=== PATIENT | female | born 2000 | race Caucasian/White ===

== ENCOUNTER 2019-11-26 19:35 | Emergency (ER) | payer BC ==
[2019-11-26] MEDS ORDERED: SODIUM CHLORIDE 0.9% 1,000 ML IV STA (19:45)
[2019-11-26] MEDS ORDERED: ONDANSETRON 4 MG/2 ML VIAL IVP STA (19:45)
[2019-11-26] MEDS ORDERED: KETOROLAC 15 MG/ML 1 ML VIAL IVP STA (20:01)
[2019-11-26 20:34] LABS: Basophils % (A) 0 %; Eosinophils # (A) 0.1 k/uL (0-0.7); Eosinophils % (A) 1 %; HCT 43.2 % (34.0-46.0); HGB 14.4 gm/dL (11.4-16.0); Lymphocytes # (A) 2.4 k/uL (1.0-4.8); Lymphocytes % (A) 23 %; MCH 29.8 pg (25.0-35.0); MCHC 33.4 g/dL (31.0-37.0); MCV 89.3 fL (80.0-100.0); Mean Platelet Volume 9.5; Monocytes # (A) 0.6 k/uL (0-1.0); Monocytes % (A) 5 %; Neutrophils # (A) 7.1 k/uL (1.3-7.7); Neutrophils % (A) 69 %; Platelet Count 230 k/uL (150-450); RBC 4.83 m/uL (3.80-5.40); RDW 12.5 % (11.5-15.5); WBC 10.2 k/uL (4.0-11.0)
[2019-11-26 20:45] LABS: ALT 15 U/L (4-34); AST 20 U/L (14-36); African American GFR (CKD) >90 (>60 ml/min/1.73 sqM); Albumin 4.3 g/dL (3.5-5.0); Alkaline Phosphatase 77 U/L (38-126); Anion Gap 9 mmol/L; Blood Urea Nitrogen 12 mg/dL (7-17); Calcium 9.7 mg/dL (8.4-10.2); Carbon Dioxide 24 mmol/L (22-30); Chloride 105 mmol/L (98-107); Glucose 83 mg/dL (74-99); Non-African American GFR(CKD) >90 (>60 ml/min/1.73 sqM); Potassium 4.2 mmol/L (3.5-5.1); Sodium 138 mmol/L (137-145); Total Bilirubin 0.9 mg/dL (0.2-1.3); Total Protein 7.1 g/dL (6.3-8.2)
[2019-11-26 20:49] LABS: INR 0.9 (<1.2); Prothrombin Time 9.9 sec (9.0-12.0)
[2019-11-26 20:59] LABS: Partial Thromboplastin Time 21.6 sec (22.0-30.0)
[2019-11-26 21:38] VITALS: RESP 18
--- NOTE | 2019-11-26 21:43 | CT ---
EXAMINATION TYPE: CT abdomen pelvis w con DATE OF EXAM: 11/26/2019 COMPARISON: None HISTORY: RLQ pain CT DLP: 1824.9 mGycm Automated exposure control for dose reduction was used. CONTRAST: Performed with IV Contrast, patient injected with 100 mL of Isovue 300. Images were obtained from the diaphragm to the floor the pelvis with IV contrast. Lung bases are clear. There is no pleural effusion. Heart size is normal. There is no pericardial eff usion. Liver spleen stomach pancreas gallbladder appear normal. Bile ducts are not dilated. There is no adrenal mass. Kidneys show satisfactory contrast opacification. There is no hydronephrosi s. Ureters are not dilated. There is no retroperitoneal adenopathy. Bladder distends smoothly. There is no inguinal hernia. There is tiny amount of free fluid in the pelvis which could BE physiologic.. There is no evidence of pelvic mass. Uterus is anteverted. Lumbar spine is intact. Bony pelvis is int act. Hip joints are intact. Appendix appears normal. There is no mesenteric edema. There is no ascites or free air. There is no e vidence of bowel obstruction. Fecal pattern is normal. IMPRESSION: Negative CT scan abdomen and pelvis. Normal appendix.
--- NOTE | 2019-11-26 21:48 | US ---
EXAMINATION TYPE: US transvaginal DATE OF EXAM: 11/26/2019 COMPARISON: Same day CT CLINICAL HISTORY: abd pain. RLQ pain TECHNIQUE: Transvaginal (TV). Transvaginal sonographic images of the pelvis were acquired. Date of LMP: 11/12/2019 EXAM MEASUREMENTS: Uterus: 7.4 x 2.9 x 3.6 cm Endometrial Stripe: 0.6 cm Right Ovary: 3.1 x 1.9 x 3.5 cm Left Ovary: 2.3 x 2.2 x 2.0 cm 1. Uterus: Anteverted wnl 2. Endometrium: wnl 3. Right Ovary: wnl 4. Left Ovary: wnl Spectral, color and waveform doppler imaging shows good arterial and venous flow within the ovaries ; there is no evidence for ovarian torsion. 5. Bilateral Adnexa: wnl 6. Posterior cul-de-sac: Small amount of free fluid IMPRESSION: No adnexal mass. Normal uterus and endometrium. Small amount of free fluid in the pelvis could be physiologic. No evidence of ovarian torsion.
[2019-11-26 22:39] LABS: Appearance,Urine Cloudy (Clear); Bacteria,Urine Rare /hpf; Bilirubin,Urine Negative (Negative); Blood,Urine Negative (Negative); Color,Urine Light Yellow; Glucose,Urine (UA) Negative (Negative); Ketones,Urine Negative (Negative); Leukocyte Esterase,Urine Moderate (Negative); Mucus,Urine Rare /hpf; Nitrite,Urine Negative (Negative); Protein,Urine Negative (Negative); RBC,Urine 1 /hpf (0-5); Squamous Epithelial Cell,Urine 20 /hpf (0-4); WBC,Urine 6 /hpf (0-5)
[2019-11-26 22:40] LABS: Specific Gravity,Urine >1.050 (1.001-1.035)
[2019-11-26 22:46] VITALS: BP 117/64; PULSE 86; TEMP 98.9
--- NOTE | 2019-11-26 22:52 | ED ---
Abdominal Pain HPI - General Chief Complaint: Abdominal Pain Stated Complaint: Rt flank pain Time Seen by Provider: 11/26/19 19:35 Source: patient Mode of arrival: wheelchair Limitations: no limitations - History of Present Illness Initial Comments: Patient is a 19-year-old female past history of PCOS who presents to the emergency room with reported right lower quadrant pain. Patient states the pain started around 5 PM. Was sudden onset and is described as sharp and stabbing in nature. She denies associated episode of vomiting with it. Pain has been constant. Has not taken any medications at home for her symptoms. Denies hematemesis. No chest pain or shortness of breath. No diarrhea, constipation, melenic stools or hematochezia. No dysuria, hematuria or difficulty voiding. No history of similar in the past. Next concern for sexually transmitted infections. Last menstrual cycle was one week ago. Denies any abnormal vaginal bleeding or discharge. No previous abdominal surgeries. No other alleviating, precipitating or modifying factors - Related Data Previous Rx's Medication Instructions Recorded Ondansetron Odt [Zofran Odt] 4 mg PO Q8HR PRN #10 tab 11/26/19 Allergies Allergy/AdvReac Type Severity Reaction Status Date / Time No Known Allergies Allergy Verified 11/26/19 19:40 Review of Systems ROS Statement: Those systems with pertinent positive or pertinent negative responses have been documented in the HPI. ROS Other: All systems not noted in ROS Statement are negative. Past Medical History Additional Past Medical History / Comment(s): PCOS History of Any Multi-Drug Resistant Organisms: None Reported Past Surgical History: Adenoidectomy, Tonsillectomy Past Psychological History: No Psychological Hx Reported Smoking Status: Never smoker Past Alcohol Use History: None Reported Past Drug Use History: None Reported General Exam Limitations: no limitations General appearance: alert, in no apparent distress Head exam: Present: atraumatic, normocephalic, normal inspection Eye exam: Present: normal appearance, PERRL, EOMI. Absent: scleral icterus, conjunctival injection, periorbital swelling ENT exam: Present: normal exam, mucous membranes moist Neck exam: Present: normal inspection. Absent: tenderness, meningismus, lymphadenopathy Respiratory exam: Present: normal lung sounds bilaterally. Absent: respiratory distress, wheezes, rales, rhonchi, stridor Cardiovascular Exam: Present: normal rhythm, tachycardia, normal heart sounds. Absent: systolic murmur, diastolic murmur, rubs, gallop, clicks GI/Abdominal exam: Present: soft, tenderness (right lower quadrant at mcburney point. Negative west sign. No rebound. Negative rovsings. ), normal bowel sounds. Absent: distended, guarding, rebound, rigid Extremities exam: Present: normal inspection, full ROM, normal capillary refill. Absent: tenderness, pedal edema, joint swelling, calf tenderness Back exam: Present: normal inspection Neurological exam: Present: alert, oriented X3, CN II-XII intact Psychiatric exam: Present: normal affect, normal mood Skin exam: Present: warm, dry, intact, normal color. Absent: rash Course Vital Signs 11/26/19 11/26/19 11/26/19 19:36 21:00 22:20 Temperature 98.3 F 98.1 F 98.9 F Pulse Rate 107 H 88 86 Respiratory 22 18 18 Rate Blood Pressure 144/88 111/63 117/64 O2 Sat by Pulse 99 96 100 Oximetry Medical Decision Making - Medical Decision Making Upon arrival patient was placed into room 27. A thorough history and physical exam was performed. Peripheral IV is established. The patient is given 15 mg of Toradol for pain control. LAb studies are conducted. CT the patient's abdomen and pelvis was performed because of her right lower quadrant pain. Patient also has a history of PCOS was and therefore ultrasound is performed. Laboratory studies are unremarkable. Urinalysis is not a clean catch. Specimen will be sent for culture. HCG not detected. CT of the patient's abdomen and pelvis demonstrates a normal appendix. No acute findings. Transvaginal ultrasound demonstrates no signs of ovarian torsion or abscess. I discussed results with the patient. I recommended increased fluid intake, stool softeners. She is to alternate taking Motrin and Tylenol for pain control however do not want to give her anything stronger as I do not want to mask the patient's symptoms. Strict return parameters were discussed. I discussed the concern for appendicitis as the pain is located in the patient's right lower quadrant she should return if she has any new or worsening symptoms. The patient understood this. She was given written and verbal discharge instructi ons and discharged in stable condition. Patient given a prescription for Zofran for nausea. - Lab Data Result diagrams: 11/26/19 20:14 11/26/19 20:14 Lab Results 11/26/19 11/26/19 11/26/19 Range/Units 20:14 20:14 20:14 WBC 10.2 (4.0-11.0) k/uL RBC 4.83 (3.80-5.40) m/uL Hgb 14.4 (11.4-16.0) gm/dL Hct 43.2 (34.0-46.0) % MCV 89.3 (80.0-100.0) fL MCH 29.8 (25.0-35.0) pg MCHC 33.4 (31.0-37.0) g/dL RDW 12.5 (11.5-15.5) % Plt Count 230 (150-450) k/uL Neutrophils % 69 % Lymphocytes % 23 % Monocytes % 5 % Eosinophils % 1 % Basophils % 0 % Neutrophils # 7.1 (1.3-7.7) k/uL Lymphocytes # 2.4 (1.0-4.8) k/uL Monocytes # 0.6 (0-1.0) k/uL Eosinophils # 0.1 (0-0.7) k/uL Basophils # 0.0 (0-0.2) k/uL PT (9.0-12.0) sec INR (<1.2) APTT (22.0-30.0) sec Sodium 138 (137-145) mmol/L Potassium 4.2 (3.5-5.1) mmol/L Chloride 105 (98-107) mmol/L Carbon Dioxide 24 (22-30) mmol/L Anion Gap 9 mmol/L BUN 12 (7-17) mg/dL Creatinine 0.82 (0.52-1.04) mg/dL Est GFR (CKD-EPI)AfAm >90 (>60 ml/min/1.73 sqM) Est GFR (CKD-EPI)NonAf >90 (>60 ml/min/1.73 sqM) Glucose 83 (74-99) mg/dL Plasma Lactic Acid Kuldip (0.7-2.0) mmol/L Calcium 9.7 (8.4-10.2) mg/dL Total Bilirubin 0.9 (0.2-1.3) mg/dL AST 20 (14-36) U/L ALT 15 (4-34) U/L Alkaline Phosphatase 77 (38-126) U/L Total Protein 7.1 (6.3-8.2) g/dL Albumin 4.3 (3.5-5.0) g/dL Lipase 127 (23-300) U/L Urine Color Light Yellow Urine Appearance Cloudy H (Clear) Urine pH 7.0 (5.0-8.0) Ur Specific [place] >1.050 H (1.001-1.035) Urine Protein Negative (Negative) Urine Glucose (UA) Negative (Negative) Urine Ketones Negative (Negative) Urine Blood Negative (Negative) Urine Nitrite Negative (Negative) Urine Bilirubin Negative (Negative) Urine Urobilinogen 2.0 (<2.0) mg/dL Ur Leukocyte Esterase Moderate H (Negative) Urine RBC 1 (0-5) /hpf Urine WBC 6 H (0-5) /hpf Ur Squamous Epith Cells 20 H (0-4) /hpf Urine Bacteria Rare H (None) /hpf Urine Mucus Rare H (None) /hpf Urine HCG, Qual (Not Detectd) 11/26/19 11/26/19 11/26/19 Range/Units 20:14 20:14 20:14 WBC (4.0-11.0) k/uL RBC (3.80-5.40) m/uL Hgb (11.4-16.0) gm/dL Hct (34.0-46.0) % MCV (80.0-100.0) fL MCH (25.0-35.0) pg MCHC (31.0-37.0) g/dL RDW (11.5-15.5) % Plt Count (150-450) k/uL Neutrophils % % Lymphocytes % % Monocytes % % Eosinophils % % Basophils % % Neutrophils # (1.3-7.7) k/uL Lymphocytes # (1.0-4.8) k/uL Monocytes # (0-1.0) k/uL Eosinophils # (0-0.7) k/uL Basophils # (0-0.2) k/uL PT 9.9 (9.0-12.0) sec INR 0.9 (<1.2) APTT 21.6 L (22.0-30.0) sec Sodium (137-145) mmol/L Potassium (3.5-5.1) mmol/L Chloride (98-107) mmol/L Carbon Dioxide (22-30) mmol/L Anion Gap mmol/L BUN (7-17) mg/dL Creatinine (0.52-1.04) mg/dL Est GFR (CKD-EPI)AfAm (>60 ml/min/1.73 sqM) Est GFR (CKD-EPI)NonAf (>60 ml/min/1.73 sqM) Glucose (74-99) mg/dL Plasma Lactic Acid Kuldip 1.2 (0.7-2.0) mmol/L Calcium (8.4-10.2) mg/dL Total Bilirubin (0.2-1.3) mg/dL AST (14-36) U/L ALT (4-34) U/L Alkaline Phosphatase (38-126) U/L Total Protein (6.3-8.2) g/dL Albumin (3.5-5.0) g/dL Lipase (23-300) U/L Urine Color Urine Appearance (Clear) Urine pH (5.0-8.0) Ur Specific [place] (1.001-1.035) Urine Protein (Negative) Urine Glucose (UA) (Negative) Urine Ketones (Negative) Urine Blood (Negative) Urine Nitrite (Negative) Urine Bilirubin (Negative) Urine Urobilinogen (<2.0) mg/dL Ur Leukocyte Esterase (Negative) Urine RBC (0-5) /hpf Urine WBC (0-5) /hpf Ur Squamous Epith Cells (0-4) /hpf Urine Bacteria (None) /hpf Urine Mucus (None) /hpf Urine HCG, Qual Not Detected (Not Detectd) Disposition Clinical Impression: Right lower quadrant abdominal pain, Nausea and vomiting Disposition: HOME SELF-CARE Condition: Stable Instructions (If sedation given, give patient instructions): Abdominal Pain ( ED) Additional Instructions: Please take MiraLAX daily until you have soft bowel movements. Alternate taking Motrin Tylenol for pain. If your symptoms do not improve for you have any new or worsening symptoms please return to the emergency department. Prescriptions: Ondansetron Odt [Zofran Odt] 4 mg PO Q8HR PRN #10 tab PRN Reason: Nausea Is patient prescribed a controlled substance at d/c from ED?: No Referrals: Peter Lawrence DO [Primary Care Provider] - 1-2 days Time of Disposition: 22:51
== END 2019-11-26 23:00 | disposition home or self-care (01) ==
LOC: EC 19:35
DX: R10.31 Right lower quadrant pain (principal); R11.2 Nausea with vomiting, unspecified; Z87.42 Personal history of other diseases of the female genital tract
CPT/HCPCS: 36415; 80053; 83605; 83690; 85025; 85610; 85730; 81001; 81025; 93975; 76830; 74177; 99284; 96374; 96375; 96361; J2405; J1885; Q9967

== ENCOUNTER → 2020-05-14 | Outpatient (CLI) | payer BC ==
[2020-05-14 11:15] LABS: Basophils % (A) 0 %; Eosinophils # (A) 0.1 k/uL (0-0.7); Eosinophils % (A) 1 %; HCT 41.5 % (34.0-46.0); HGB 13.6 gm/dL (11.4-16.0); Lymphocytes # (A) 1.7 k/uL (1.0-4.8); Lymphocytes % (A) 23 %; MCH 29.6 pg (25.0-35.0); MCHC 32.7 g/dL (31.0-37.0); MCV 90.3 fL (80.0-100.0); Mean Platelet Volume 9.4; Monocytes # (A) 0.4 k/uL (0-1.0); Monocytes % (A) 6 %; Neutrophils # (A) 4.9 k/uL (1.3-7.7); Neutrophils % (A) 69 %; Platelet Count 205 k/uL (150-450); RBC 4.59 m/uL (3.80-5.40); RDW 13.1 % (11.5-15.5); WBC 7.2 k/uL (4.0-11.0)
== END | disposition home or self-care (01) ==
LOC: LABPAT 10:07
PROVIDERS: ATTEND Obstetrics & Gynecology
DX: Z01.818 Encounter for other preprocedural examination (principal); N80.9 Endometriosis, unspecified; R10.2 Pelvic and perineal pain
CPT/HCPCS: 36415; 85025

== ENCOUNTER 2020-05-28 08:23 | Day surgery (SDC) | payer BC ==
[2020-05-21 18:05] VITALS: BMI 36.5
[~2020-05-28 08:23] MED LIST: DEXAMETHASONE SOD PHOSPHATE 4 MG/ML 1 ML VIAL IV ONE; HYDROmorphone 0.5 MG/0.5 ML SYRINGE IVP PRN; LACTATED RINGERS 1,000 ML IV SCH; LIDOCAINE 1% (10MG/ML) FOR IV START INTRADERMA PRN; MIDAZOLAM 2 MG/2 ML VIAL IV PRN; ONDANSETRON 4 MG/2 ML VIAL IVP ONE; Pre Op ABX Message 1 EACH MISC MISCELLANE ONE
[2020-05-28 08:50] VITALS: TEMP 98.1
[2020-05-28 08:59] LABS: Glucose,Whole Blood 91 mg/dL (75-99)
[2020-05-28] MEDS ORDERED: MIDAZOLAM 2 MG/2 ML VIAL ONE (10:44)
[2020-05-28] MEDS ORDERED: PROPOFOL 10 MG/ML 20 ML VIAL IV ONE (10:44)
[2020-05-28] MEDS ORDERED: ROCURONIUM 10 MG/ML (5 ML VIAL) IV ONE (10:44)
[2020-05-28] MEDS ORDERED: KETOROLAC 15 MG/ML 1 ML VIAL ONE (10:44)
[2020-05-28] MEDS ORDERED: NEOSTIGMINE 1 MG/ML 10 ML VIAL ONE (10:44)
[2020-05-28] MEDS ORDERED: SUCCINYLCHOLINE CHLORIDE 100 MG/5 ML SYR IV ONE (10:44)
[2020-05-28] MEDS ORDERED: GLYCOPYRROLATE 0.2 MG/ML 2 ML VIAL ONE (10:44)
[2020-05-28] MEDS ORDERED: fentaNYL (PF) 50 MCG/ML 2 ML AMP ONE (10:44)
[2020-05-28] MEDS ORDERED: BUPIVACAINE (PF) 0.25% 30 ML VIAL SQ ONE ×2 (11:12)
--- NOTE | 2020-05-28 11:22 | P.OP ---
Date of Procedure: 05/28/20 Preoperative Diagnosis: Diagnostic laparoscopy Port placement Postoperative Diagnosis: Diagnostic laparoscopy Procedure(s) Performed: Diagnostic laparoscopy Anesthesia: ISMAEL Surgeon: Leon Schwartz Pathology: none sent Condition: stable Disposition: PACU Description of Procedure: I was asked by Dr. rocha to place a port into the patient's abdomen. There was some concern of the position of the original 5 mm port in the infra umbilical position. The patient had been previously prepped and draped. Jose Francisco skin to the main left upper quadrant. Using a Veress needle the abdomen was insufflated and then using a fiberoptic trocar through this incision the parenchyma was entered. The perineal cavity was examined. At the umbilicus it appears the trocar was the pre-peritoneal space. At this point Dr. rocha resumed her procedure. Please see her operative note.
[2020-05-28] MEDS ORDERED: LACTATED RINGERS 1,000 ML IV ONE (11:29)
--- NOTE | 2020-05-28 11:46 | P.OP ---
Date of Procedure: 05/28/20 Preoperative Diagnosis: Chronic pelvic pain Postoperative Diagnosis: Essentially normal-appearing female pelvis Procedure(s) Performed: Diagnostic laparoscopy Anesthesia: ISMAEL Surgeon: Pretty Matthews Estimated Blood Loss (ml): 20 IV fluids (ml): 1,000 Urine output (ml): 300 Pathology: none sent Condition: stable Disposition: PACU Operative Findings: Normal-appearing tubes and ovaries. Normal-appearing appendix, liver edge, and gallbladder. Negative cul-de-sac, negative pelvic sidewalls. No evidence of endometriosis or adhesions. Essentially normal-appearing female pelvis. Description of Procedure: The patient is brought to the operating suite where a general anesthetic is administered. She's placed in the dorsal lithotomy position. Urine hCG is negative. The appropriate timeout is performed to assure proper patient and procedural identification. The cervix, vagina, perineal body, and abdomen are all prepped and draped in usual sterile fashion. Bladder is drained for approximately 300 mL of clear yellow urine. Speculum was placed into the vagina, anterior lip of the cervix was grasped with a Allis clamp. Small acorn is placed and attached to the Allis. Speculum is removed from the vagina and attention is drawn to the abdominal wall. A small infraumbilical incision is made and the varies needle is placed and placement is checked with hanging drop technique. Insufflation is then performed, pressures appear somewhat high at 13-15 mmHg. For this reason the varies needle is removed, and replaced. Again, hanging drop technique suggested proper placement. However upon insufflating the abdominal cavity, I am uncertain as to whether we are in the peritoneal cavity. Therefore the optical scope is placed, and I am unable to access the peritoneal cavity secondary to supra peritoneal gas. At this time Dr. Coleman of general surgery is asked to step in. He is able to enter the peritoneal cavity in the left upper quadrant, please see dictated note under separate dictation. With this, a second trocar is placed under direct visualization in the suprapubic area. The uterus is elevated and placed in lateral position, Trendelenburg position is also employed. The right tube and ovary are normal to inspection. The left tube and ovary are also normal. The uterine serosa anterior and posterior are smooth and clear. No evidence of endometriosis. The posterior cul-de-sac, bilateral pelvic sidewalls are all negative. The appendix appears normal. The colon serosa is normal. The right upper quadrant is normal as well. After thorough inspection is performed and I'm sure that the pelvis is negative, the CO2 gas was allowed to diffuse. The 3 incisions are injected with quarter percent Marcaine, and closed with 4-0 undyed Monocryl in a subcuticular manner. Dressings are applied. Instrumentation is removed from the vagina, the cervix is smooth and clear. All sponge needle and instrument counts are correct. Patient is brought back to the recovery room in very good condition with stable vital signs including blood pressure 129/81, pulse 98, 100% saturation. She is given Toradol prior to leaving the operative suite.
[2020-05-28 12:34] VITALS: RESP 16
[2020-05-28] MEDS ORDERED: HYDROcodone/APAP 5-325MG 1 EACH TAB ONE (12:50)
[2020-05-28] MEDS ORDERED: HYDROcodone/APAP 5-325MG 1 EACH TAB PO ONE ×2 (12:55)
[2020-05-28 13:18] VITALS: BP 112/66; PULSE 81
== END 2020-05-28 13:43 | disposition home or self-care (01) ==
LOC: OR 08:23
PROVIDERS: ATTEND Obstetrics & Gynecology
DX: R10.2 Pelvic and perineal pain (principal); Z83.3 Family history of diabetes mellitus; Z79.899 Other long term (current) drug therapy
CPT/HCPCS: 81025; 49320; J2250; J1100; J2710; J2405; J3010; J1885; J0330; J2704

== ENCOUNTER 2020-10-09 09:39 | Emergency (ER) | payer BC, OTHER ==
[2020-10-09 09:49] VITALS: BP 135/89; PULSE 99; RESP 18; TEMP 98.1
[2020-10-09] MEDS ORDERED: KETOROLAC 15 MG/ML 1 ML VIAL IM STA (10:04)
[2020-10-09] MEDS ORDERED: DIPH,PERTUS(ACELL)TETVAC-LF 0.5 ML VIAL IM ONE (10:04)
--- NOTE | 2020-10-09 10:37 | ED ---
Wound/Laceration HPI - General Chief Complaint: Wound/Laceration Stated Complaint: IHS-finger lac Time Seen by Provider: 10/09/20 09:56 Source: patient, RN notes reviewed Mode of arrival: ambulatory Limitations: no limitations - History of Present Illness Initial Comments: She is a 19-year-old female that presents to emergency department with a left ring finger nail injury. She notes that she was chopping food at work she accidentally chopped her left ring finger through the middle of the nail. She notes is denies got stuck so she was concerned that it might hit the bone. She noted that her pain was approximately an 8 out of 10. She denied taking anything prior to arrival as it happened 20 minutes prior. She denied any other issues or complaints. She had full range of motion sensation. She was a well- appearing well-hydrated 19 oh female. She denied any chest pains worse breath headache nausea vomiting diarrhea constipation fever fatigue chills. - Related Data Home Medications Medication Instructions Recorded Confirmed Acetaminophen [Tylenol Extra 500 - 1,000 mg PO DIRECTED PRN 05/21/20 05/28/20 Strength] Bcp 1 tab PO HS 05/21/20 05/28/20 Spironolactone [Aldactone] 100 mg PO BID 05/21/20 05/28/20 buPROPion XL [Wellbutrin Xl] 150 mg PO DAILY 05/21/20 05/28/20 metFORMIN HCL [Glucophage] 1,000 mg PO BID 05/21/20 05/28/20 Previous Rx's Medication Instructions Recorded Cephalexin [Keflex] 500 mg PO Q6HR #40 cap 10/09/20 Allergies Allergy/AdvReac Type Severity Reaction Status Date / Time No Known Allergies Allergy Verified 10/09/20 09:49 Review of Systems ROS Statement: Those systems with pertinent positive or pertinent negative responses have been documented in the HPI. ROS Other: All systems not noted in ROS Statement are negative. Past Medical History Additional Past Medical History / Comment(s): PCOS History of Any Multi-Drug Resistant Organisms: None Reported Past Surgical History: Adenoidectomy, Tonsillectomy Additional Past Surgical History / Comment(s): laproscopy Past Psychological History: No Psychological Hx Reported Smoking Status: Never smoker General Exam Limitations: no limitations General appearance: alert, in no apparent distress Head exam: Present: atraumatic, normocephalic, normal inspection Eye exam: Present: normal appearance, PERRL, EOMI. Absent: scleral icterus, conjunctival injection, periorbital swelling Neck exam: Present: normal inspection Respiratory exam: Present: normal lung sounds bilaterally. Absent: respiratory distress, wheezes, rales, rhonchi, stridor Cardiovascular Exam: Present: regular rate, normal rhythm, normal heart sounds. Absent: systolic murmur, diastolic murmur, rubs, gallop, clicks Left Hand Wrist exam: Present: normal inspection, full ROM, tenderness, laceration (Through the medial aspect of the left ring or nail). Absent: swelling, abrasion, ecchymosis, deformity, crepitus, dislocation Neurological exam: Present: alert, oriented X3 Psychiatric exam: Present: normal affect, normal mood Skin exam: Present: warm, dry, intact, normal color. Absent: rash Course Vital Signs 10/09/20 09:45 Temperature 98.1 F Pulse Rate 99 Respiratory 18 Rate Blood Pressure 135/89 O2 Sat by Pulse 100 Oximetry Medical Decision Making - Medical Decision Making 19-year-old female with a left ring finger nail injury from a knife at work. X-ray of the left fingers, 50 mg of Toradol, tetanus vaccine ordered. X-ray negative for any bone involvement. Nail laceration nonbleeding well approximated, no sutures needed this time. Case discussed with Dr. Scott, patient can discharge home follow-up to primary care. - Radiology Data Radiology results: report reviewed, image reviewed X-ray left fingers: Unremarkable x-ray of left fingers. Disposition Clinical Impression: Nailbed laceration, finger Disposition: HOME SELF-CARE Condition: Stable Instructions (If sedation given, give patient instructions): Laceration (ED) Additional Instructions: Please return to the Emergency Department if symptoms worsen or any other concerns. Follow-up with primary care in the next several days. Take antibiotics as prescribed. Take Tylenol and Motrin as needed for pain control. Keep areas clean and is tries possible. Prescriptions: Cephalexin [Keflex] 500 mg PO Q6HR #40 cap Is patient prescribed a controlled substance at d/c from ED?: No Referrals: Peter Lawrence DO [Primary Care Provider] - 1-2 days Time of Disposition: 10:44
--- NOTE | 2020-10-09 10:40 | XR ---
EXAMINATION TYPE: XR finger LT DATE OF EXAM: 10/09/2020 COMPARISON: NONE HISTORY: Left ring finger nail injury TECHNIQUE: 3 views left finger FINDINGS: No acute fracture or dislocation IMPRESSION: Unremarkable left finger.
== END 2020-10-09 11:18 | disposition home or self-care (01) ==
LOC: EC 09:39
DX: S61.315A Laceration without foreign body of left ring finger with damage to nail, initial encounter (principal); Z79.84 Long term (current) use of oral hypoglycemic drugs; Z23 Encounter for immunization; Z79.899 Other long term (current) drug therapy; W26.0XXA Contact with knife, initial encounter; Y99.0 Civilian activity done for income or pay
CPT/HCPCS: 73140; 90715; 90471; 99282; 96372; J1885

== ENCOUNTER → 2021-10-16 | Outpatient (CLI) | payer BC ==
--- NOTE | 2021-10-16 16:06 | US ---
EXAMINATION TYPE: US abdomen complete DATE OF EXAM: 10/16/2021 COMPARISON: NONE CLINICAL HISTORY: E28.2,E66.01,E88.81,L68.0. RLQ pain EXAM MEASUREMENTS: Liver Length: 12.8 cm Gallbladder Wall: 0.21 cm CBD: 0.23 cm Spleen: 10.9 cm Right Kidney: 10.6 x 5.2 x 5.6 cm Left Kidney: 11.7 x 4.9 x 5.0 cm Pancreas: Obscured by bowel gas Liver: Heterogeneous Gallbladder: wnl Evidence for sonographic Addison's sign: No CBD: wnl Spleen: wnl Right Kidney: wnl Left Kidney: wnl Upper IVC: Obscured by overlying bowel gas Abd Aorta: Prox aorta obscured by bowel gas IMPRESSION: 1. Normal abdomen ultrasound.
--- NOTE | 2021-10-16 16:12 | US ---
EXAMINATION TYPE: US pelvis complete transvag DATE OF EXAM: 10/16/2021 COMPARISON: 11/26/19 CLINICAL HISTORY: E28.2,E66.01,E88.81,L68.0. RLQ pain x 4 years. Patient states she has irregular per iods. TECHNIQUE: . Transabdominal sonographic images of the pelvis were acquired. Transvaginal sonographi c images were medically necessary to better assess the following anatomy: ovaries Date of LMP: 09/04/21 EXAM MEASUREMENTS: Uterus: 8.1 x 4.6 x 3.8 cm Endometrial Stripe: 1.1 cm Right Ovary: 3.8 x 3.4 x 1.4 cm Left Ovary: 2.3 x 2.3 x 1.5 cm 1. Uterus: Anteverted Nabothian cysts were visualized 2. Endometrium: wnl 3. Right Ovary: wnl 4. Left Ovary: wnl 5. Bilateral Adnexa: wnl 6. Posterior cul-de-sac: wnl IMPRESSION: 1. Normal pelvic ultrasound.
== END | disposition home or self-care (01) ==
LOC: RADUSWWP 07:21
PROVIDERS: ATTEND Internal Medicine Endocrinology, Diabetes & Metabolism
DX: E28.2 Polycystic ovarian syndrome (principal); E66.01 Morbid (severe) obesity due to excess calories; E88.81 Metabolic syndrome and other insulin resistance; L68.0 Hirsutism; N88.8 Other specified noninflammatory disorders of cervix uteri
CPT/HCPCS: 76700; 76830; 76856